=== PATIENT | female | born 1940 ===

== ENCOUNTER 2018-12-29 16:57 | Inpatient (IN) | payer MEDICARE, SELFPAY ==
[~2018-12-29] VITALS: Ht 157.5 cm; Wt 91.0 kg
--- NOTE | 2018-12-29 17:00 | NUR ---
TASK RN: [facility] FROM [place] W/ CO R L ARM PAIN/SWELLING X THREE DAYS OVER AV [facility] SITE. FISTULA LAST USED FOR DIALYSIS ON SUNDAY. +THRILL W/ 2S CAP REFILL DISTALLY. DENIES TRAUMA OR SITE INJURY/FEVER/N/V BC X2 AND ZOSYN/VANCO GIVEN MARKETING DEVELOPMENT MANAGER. PT UNABLE TO RECALL HOME MEDICATIONS, UNABLE TO DO MED REC AT THIS TIME. PRIMARY RN, ANNIE GOLDSTEIN
[2018-12-29] MEDS ORDERED: DOCUSATE 100 MG CAPSULE PO PRN (18:00)
[2018-12-29] MEDS ORDERED: LABETALOL 5MG/ML, 20ML IVPush PRN (18:00)
[2018-12-29] MEDS ORDERED: POLYETHYLENE GLYCOL 17 GM PACKET PO PRN (18:00)
[2018-12-29] MEDS ORDERED: GABAPENTIN 300 MG CAPSULE PO PRN (18:00)
[2018-12-29] MEDS ORDERED: hydrALAzine 20 MG/ML, 1ML IVPush PRN (18:00)
[2018-12-29] MEDS ORDERED: BISACODYL 10 MG SUPP PR PRN (18:00)
[2018-12-29] MEDS ORDERED: VANCOMYCIN PER PHARMACY MC PRN ×2 (18:00→20:00)
[2018-12-29] MEDS ORDERED: PHARMACY MAY ADJ FOR RENAL FX MC PRN (18:00)
--- NOTE | 2018-12-29 18:11 | NUR ---
TASK RN: REPORT TO ASHLYN PRESCOTT
--- NOTE | 2018-12-29 18:14 | NUR ---
TASK RN: REPORT CALLED TO ASHLYN PRESCOTT
[2018-12-29] MEDS ORDERED: GLUCAGON 1 MG IM PRN (18:30)
[2018-12-29] MEDS ORDERED: DEXTROSE 50%, 50ML SYRINGE IVPush PRN (18:30)
[2018-12-29] MEDS ORDERED: DEXTROSE 4 GM TAB.CHEW PO PRN (18:30)
[2018-12-29 18:33] LABS: BASOPHILS # (AUTO) 0.05 x10^3/uL (0-0.1); BASOPHILS % (AUTO) 1 % (0-1); EOSINOPHILS # (AUTO) 0.01 x10^3/uL (0-0.4); EOSINOPHILS % (AUTO) 0 % (1-7); LYMPHOCYTES # (AUTO) 1.01 x10^3/uL (1-3.4); LYMPHOCYTES % (AUTO) 15 % (22-44); MD NO; MEAN CORPUSCULAR HEMOGLOBIN 27.7 pg (27.0-34.8); MEAN CORPUSCULAR VOLUME 86.5 fL (80-100); MEAN PLATELET VOLUME 8.2 fL (7.4-10.4); MONOCYTES # (AUTO) 0.33 x10^3/uL (0.2-0.8); MONOCYTES % (AUTO) 5 % (2-9); NEUTROPHILS # (AUTO) 5.49 x10^3/uL (1.8-6.8); NEUTROPHILS % (AUTO) 80 % (42-75); PLATELET COUNT 340 x10^3/uL (130-400); RED CELL DISTRIBUTION WIDTH 17.3 % (9.6-15.2)
[2018-12-29] MEDS: HEPARIN 5,000 UNITS/ML, 1ML SQ SCH (18:48)
[2018-12-29 19:07] LABS: HEMOGLOBIN A1C 5.2 % (4.2-6.3)
[2018-12-29 19:18] VITALS: BP 153/80
[2018-12-29] MEDS ORDERED: PHARMACOKINETIC MONITORING MC PRN ×2 (19:30→20:00)
[2018-12-29] MEDS ORDERED: VANCOMYCIN 1,500 MG in SODIUM CHLORIDE 0.9% 250 ML IV ONE (19:30)
[2018-12-29] MEDS ORDERED: PHARMACOKINETIC CONSULTATION MC ONE ×2 (19:30→20:00)
[2018-12-29 19:34] LABS: ALBUMIN 2.9 g/dL (3.4-5.0); ANION GAP 11 mmol/L (5-15); CALCIUM 8.4 mg/dL (8.5-10.1); CHLORIDE 99 mmol/L (98-107); CREATININE 6.56 mg/dL (0.55-1.02)
[2018-12-29] MEDS: INSULIN LISPRO 100 UNITS/ML, PEN SQ-INSULIN SCH (20:09)
[2018-12-29] MEDS: PIPERACILLIN/TAZO/PMX 2.25GM 50 ML IV SCH (20:17)
[2018-12-29] MEDS: SODIUM CHLORIDE FLUSH 10ML SYR IVF SCH (20:23)
[2018-12-29] MEDS ORDERED: PIPERACILLIN/TAZO/PMX 2.25GM 50 ML IV SCH (21:00)
[2018-12-29] MEDS ORDERED: PIPERACILLIN/TAZO 2.25 GM in SODIUM CHLORIDE 0.9% 50 ML IV SCH (21:00)
[2018-12-30] MEDS: HEPARIN 5,000 UNITS/ML, 1ML SQ SCH ×3 (01:39→18:00)
[2018-12-30 03:39] VITALS: BP 134/75
[2018-12-30 05:43] LABS: ALBUMIN 2.5 g/dL (3.4-5.0); ANION GAP 11 mmol/L (5-15); CALCIUM 8.1 mg/dL (8.5-10.1); CHLORIDE 100 mmol/L (98-107); CREATININE 7.11 mg/dL (0.55-1.02)
[2018-12-30 05:47] LABS: BASOPHILS # (AUTO) 0.03 x10^3/uL (0-0.1); BASOPHILS % (AUTO) 1 % (0-1); EOSINOPHILS % (AUTO) 0 % (1-7); LYMPHOCYTES # (AUTO) 0.73 x10^3/uL (1-3.4); LYMPHOCYTES % (AUTO) 14 % (22-44); MD NO; MEAN CORPUSCULAR HEMOGLOBIN 28.5 pg (27.0-34.8); MEAN CORPUSCULAR HGB CONC 33.3 g/dL (32.4-35.8); MEAN CORPUSCULAR VOLUME 85.7 fL (80-100); MEAN PLATELET VOLUME 7.7 fL (7.4-10.4); MONOCYTES # (AUTO) 0.29 x10^3/uL (0.2-0.8); MONOCYTES % (AUTO) 6 % (2-9); NEUTROPHILS # (AUTO) 4.24 x10^3/uL (1.8-6.8); NEUTROPHILS % (AUTO) 80 % (42-75); PLATELET COUNT 261 x10^3/uL (130-400); RED BLOOD COUNT 3.44 x10^6/uL (3.82-5.3); RED CELL DISTRIBUTION WIDTH 17.6 % (9.6-15.2)
[2018-12-30 05:48] LABS: ALANINE AMINOTRANSFERASE 11 U/L (12-78); ALKALINE PHOSPHATASE 95 U/L (45-117); BILIRUBIN,TOTAL 0.3 mg/dL (0.2-1.0); TOTAL PROTEIN 6.6 g/dL (6.4-8.2); VANCOMYCIN,RANDOM 22.4 mcg/mL
[2018-12-30 06:37] LABS: INTERNATIONAL NORMALIZED RATIO 1.04 (0.93-1.1)
[2018-12-30] MEDS: INSULIN LISPRO 100 UNITS/ML, PEN SQ-INSULIN SCH ×4 (07:00→21:00)
[2018-12-30 07:19] VITALS: BP 147/67
[2018-12-30] MEDS: PIPERACILLIN/TAZO/PMX 2.25GM 50 ML IV SCH ×2 (10:10→22:16)
[2018-12-30] MEDS: SODIUM CHLORIDE FLUSH 10ML SYR IVF SCH ×2 (10:34→21:00)
[2018-12-30] MEDS ORDERED: DARBEPOETIN 100 MCG/ML SQ SCH (12:00)
[2018-12-30] MEDS: ACETAMINOPHEN 325 MG TABLET PO PRN (12:10)
[2018-12-30 12:42] VITALS: BP 153/70
[2018-12-30 19:56] VITALS: BP 128/63
[2018-12-31 00:45] VITALS: BP 131/72
[2018-12-31] MEDS: HEPARIN 5,000 UNITS/ML, 1ML SQ SCH ×3 (03:17→20:26)
[2018-12-31] MEDS: ACETAMINOPHEN 325 MG TABLET PO PRN ×2 (04:25→23:44)
[2018-12-31 04:50] LABS: BASOPHILS # (AUTO) 0.03 x10^3/uL (0-0.1); BASOPHILS % (AUTO) 1 % (0-1); EOSINOPHILS # (AUTO) 0.01 x10^3/uL (0-0.4); EOSINOPHILS % (AUTO) 0 % (1-7); LYMPHOCYTES # (AUTO) 0.66 x10^3/uL (1-3.4); LYMPHOCYTES % (AUTO) 12 % (22-44); MD NO; MEAN CORPUSCULAR HEMOGLOBIN 28.6 pg (27.0-34.8); MEAN CORPUSCULAR VOLUME 86.5 fL (80-100); MEAN PLATELET VOLUME 7.8 fL (7.4-10.4); MONOCYTES # (AUTO) 0.31 x10^3/uL (0.2-0.8); MONOCYTES % (AUTO) 6 % (2-9); NEUTROPHILS # (AUTO) 4.32 x10^3/uL (1.8-6.8); NEUTROPHILS % (AUTO) 81 % (42-75); PLATELET COUNT 276 x10^3/uL (130-400); RED BLOOD COUNT 3.73 x10^6/uL (3.82-5.3); RED CELL DISTRIBUTION WIDTH 17.4 % (9.6-15.2)
[2018-12-31 05:04] LABS: ALBUMIN 2.8 g/dL (3.4-5.0); ANION GAP 7 mmol/L (5-15); CALCIUM 8.6 mg/dL (8.5-10.1); CHLORIDE 95 mmol/L (98-107)
[2018-12-31 05:10] LABS: % IRON SATURATION 25 % (20-55); ALANINE AMINOTRANSFERASE 11 U/L (12-78); ALKALINE PHOSPHATASE 100 U/L (45-117); BILIRUBIN,TOTAL 0.5 mg/dL (0.2-1.0); IRON LEVEL 28 mcg/dL (50-170); TOTAL IRON BINDING CAPACITY 114 mcg/dL (250-450); TOTAL PROTEIN 7.2 g/dL (6.4-8.2)
[2018-12-31] MEDS ORDERED: MAGNESIUM SULFATE 3 GM in SODIUM CHLORIDE 0.9% 100 ML IV ONE (07:00)
[2018-12-31] MEDS: INSULIN LISPRO 100 UNITS/ML, PEN SQ-INSULIN SCH ×4 (07:00→19:28)
[2018-12-31 07:37] VITALS: BP 136/70
[2018-12-31] MEDS: SODIUM CHLORIDE FLUSH 10ML SYR IVF SCH ×2 (08:31→20:26)
[2018-12-31] MEDS: PIPERACILLIN/TAZO/PMX 2.25GM 50 ML IV SCH ×3 (08:31→20:26)
[2018-12-31 13:14] VITALS: BP 151/73
[2018-12-31 18:47] VITALS: BP 113/68
[2019-01-01 03:08] VITALS: BP 144/75
[2019-01-01] MEDS: HEPARIN 5,000 UNITS/ML, 1ML SQ SCH ×3 (04:51→21:41)
[2019-01-01 05:21] LABS: BASOPHILS # (AUTO) 0.03 x10^3/uL (0-0.1); BASOPHILS % (AUTO) 1 % (0-1); EOSINOPHILS # (AUTO) 0.01 x10^3/uL (0-0.4); EOSINOPHILS % (AUTO) 0 % (1-7); LYMPHOCYTES # (AUTO) 0.89 x10^3/uL (1-3.4); LYMPHOCYTES % (AUTO) 20 % (22-44); MD NO; MEAN CORPUSCULAR HEMOGLOBIN 28.4 pg (27.0-34.8); MEAN CORPUSCULAR HGB CONC 32.9 g/dL (32.4-35.8); MEAN CORPUSCULAR VOLUME 86.1 fL (80-100); MEAN PLATELET VOLUME 7.8 fL (7.4-10.4); MONOCYTES % (AUTO) 7 % (2-9); NEUTROPHILS # (AUTO) 3.16 x10^3/uL (1.8-6.8); NEUTROPHILS % (AUTO) 72 % (42-75); PLATELET COUNT 266 x10^3/uL (130-400); RED BLOOD COUNT 3.47 x10^6/uL (3.82-5.3); RED CELL DISTRIBUTION WIDTH 17.4 % (9.6-15.2)
[2019-01-01 05:32] LABS: ALBUMIN 2.7 g/dL (3.4-5.0); ANION GAP 10 mmol/L (5-15); CALCIUM 8.8 mg/dL (8.5-10.1); CHLORIDE 98 mmol/L (98-107)
[2019-01-01] MEDS: INSULIN LISPRO 100 UNITS/ML, PEN SQ-INSULIN SCH ×4 (07:00→21:41)
[2019-01-01 07:52] VITALS: BP 158/75
[2019-01-01] MEDS: SODIUM CHLORIDE FLUSH 10ML SYR IVF SCH ×2 (11:47→21:41)
[2019-01-01] MEDS: PIPERACILLIN/TAZO/PMX 2.25GM 50 ML IV SCH ×2 (11:47→21:41)
[2019-01-01 12:36] VITALS: BP 103/61
[2019-01-01] MEDS ORDERED: LIDOCAINE 1%, 20ML ONE (13:43)
[2019-01-01] MEDS ORDERED: MIDAZOLAM 1 MG/ML, 5ML ONE ×2 (14:13→14:14)
[2019-01-01] MEDS ORDERED: FENTANYL PF 100 MCG/2ML ONE (14:13)
[2019-01-01] MEDS ORDERED: FLUMAZENIL 0.1 MG/1 ML, 5ML ONE (14:14)
[2019-01-01] MEDS ORDERED: NALOXONE 1 MG/ML, 2ML ONE (14:14)
[2019-01-01] MEDS: ACETAMINOPHEN 325 MG TABLET PO PRN (21:42)
[2019-01-01 22:10] VITALS: BP 102/65
[2019-01-02 01:14] VITALS: BP 105/65
[2019-01-02] MEDS: HEPARIN 5,000 UNITS/ML, 1ML SQ SCH ×3 (04:10→21:08)
[2019-01-02] MEDS: INSULIN LISPRO 100 UNITS/ML, PEN SQ-INSULIN SCH ×4 (07:00→21:28)
[2019-01-02 07:47] VITALS: BP 134/73
[2019-01-02 08:37] LABS: BASOPHILS # (AUTO) 0.06 x10^3/uL (0-0.1); BASOPHILS % (AUTO) 1 % (0-1); EOSINOPHILS # (AUTO) 0.01 x10^3/uL (0-0.4); EOSINOPHILS % (AUTO) 0 % (1-7); LYMPHOCYTES # (AUTO) 0.59 x10^3/uL (1-3.4); LYMPHOCYTES % (AUTO) 12 % (22-44); MD NO; MEAN CORPUSCULAR HEMOGLOBIN 27.2 pg (27.0-34.8); MEAN CORPUSCULAR HGB CONC 31.4 g/dL (32.4-35.8); MEAN CORPUSCULAR VOLUME 86.7 fL (80-100); MEAN PLATELET VOLUME 7.8 fL (7.4-10.4); MONOCYTES # (AUTO) 0.36 x10^3/uL (0.2-0.8); MONOCYTES % (AUTO) 7 % (2-9); NEUTROPHILS # (AUTO) 4.17 x10^3/uL (1.8-6.8); NEUTROPHILS % (AUTO) 80 % (42-75); PLATELET COUNT 239 x10^3/uL (130-400); RED BLOOD COUNT 3.99 x10^6/uL (3.82-5.3); RED CELL DISTRIBUTION WIDTH 17.4 % (9.6-15.2)
[2019-01-02 08:44] LABS: ANION GAP 9 mmol/L (5-15); CALCIUM 8.8 mg/dL (8.5-10.1); CHLORIDE 96 mmol/L (98-107); CREATININE 5.47 mg/dL (0.55-1.02)
[2019-01-02] MEDS: PIPERACILLIN/TAZO/PMX 2.25GM 50 ML IV SCH ×2 (09:53→21:27)
[2019-01-02] MEDS: AMLODIPINE 5 MG TABLET PO SCH (09:53)
[2019-01-02] MEDS: CHOLECALCIFEROL 1,000 UNIT TABLET PO SCH (09:53)
[2019-01-02] MEDS: MULTIVITAMIN 1 TABLET PO SCH (09:53)
[2019-01-02] MEDS: SODIUM CHLORIDE FLUSH 10ML SYR IVF SCH ×2 (09:54→21:27)
[2019-01-02 12:36] VITALS: BP 117/68
[2019-01-02] MEDS: CARVEDILOL 25 MG TABLET PO SCH (16:58)
[2019-01-02 19:53] VITALS: BP 136/76
[2019-01-02] MEDS: ACETAMINOPHEN 325 MG TABLET PO PRN (21:47)
[2019-01-03 01:34] VITALS: BP 153/79
[2019-01-03 05:06] VITALS: BP 136/67
[2019-01-03] MEDS: HEPARIN 5,000 UNITS/ML, 1ML SQ SCH ×2 (05:14→17:11)
[2019-01-03] MEDS: CARVEDILOL 25 MG TABLET PO SCH ×2 (05:48→18:42)
[2019-01-03 06:33] LABS: BASOPHILS # (AUTO) 0.05 x10^3/uL (0-0.1); BASOPHILS % (AUTO) 1 % (0-1); EOSINOPHILS # (AUTO) 0.02 x10^3/uL (0-0.4); EOSINOPHILS % (AUTO) 1 % (1-7); LYMPHOCYTES # (AUTO) 0.87 x10^3/uL (1-3.4); LYMPHOCYTES % (AUTO) 18 % (22-44); MD NO; MEAN CORPUSCULAR HEMOGLOBIN 28.6 pg (27.0-34.8); MEAN CORPUSCULAR HGB CONC 32.7 g/dL (32.4-35.8); MEAN CORPUSCULAR VOLUME 87.3 fL (80-100); MEAN PLATELET VOLUME 7.8 fL (7.4-10.4); MONOCYTES # (AUTO) 0.29 x10^3/uL (0.2-0.8); MONOCYTES % (AUTO) 6 % (2-9); NEUTROPHILS # (AUTO) 3.52 x10^3/uL (1.8-6.8); NEUTROPHILS % (AUTO) 74 % (42-75); PLATELET COUNT 238 x10^3/uL (130-400); RED BLOOD COUNT 3.56 x10^6/uL (3.82-5.3); RED CELL DISTRIBUTION WIDTH 17.8 % (9.6-15.2)
[2019-01-03 06:36] LABS: ALBUMIN 2.8 g/dL (3.4-5.0); ANION GAP 8 mmol/L (5-15); CALCIUM 8.7 mg/dL (8.5-10.1); CHLORIDE 98 mmol/L (98-107); CREATININE 7.01 mg/dL (0.55-1.02)
[2019-01-03] MEDS: AMLODIPINE 5 MG TABLET PO SCH (07:36)
[2019-01-03] MEDS: INSULIN LISPRO 100 UNITS/ML, PEN SQ-INSULIN SCH ×4 (07:47→21:15)
[2019-01-03 08:05] VITALS: BP 139/83
[2019-01-03] MEDS: SODIUM CHLORIDE FLUSH 10ML SYR IVF SCH ×2 (09:00→21:03)
[2019-01-03] MEDS: CHOLECALCIFEROL 1,000 UNIT TABLET PO SCH (09:56)
[2019-01-03] MEDS: MULTIVITAMIN 1 TABLET PO SCH (09:58)
[2019-01-03] MEDS: ACETAMINOPHEN 325 MG TABLET PO PRN (10:03)
[2019-01-03] MEDS ORDERED: CARV25TA12 PO (12:23)
[2019-01-03] MEDS ORDERED: CHOL10003 PO (12:23)
[2019-01-03] MEDS ORDERED: AMLO-150 PO (12:24)
[2019-01-03] MEDS ORDERED: CATHFLO-ALTEPLASE 2 MG/2 ML CATHFLUSH STA (12:27)
[2019-01-03] MEDS: PIPERACILLIN/TAZO/PMX 2.25GM 50 ML IV SCH (17:10)
[2019-01-03] MEDS ORDERED: VANCOMYCIN PMX 1GM/200ML 200 ML IV ONE (18:00)
[2019-01-03 19:21] VITALS: BP 100/50
[2019-01-04] MEDS: HEPARIN 5,000 UNITS/ML, 1ML SQ SCH ×2 (01:01→08:37)
[2019-01-04 01:20] VITALS: BP 105/64
[2019-01-04] MEDS: CARVEDILOL 25 MG TABLET PO SCH (05:37)
[2019-01-04] MEDS: PIPERACILLIN/TAZO/PMX 2.25GM 50 ML IV SCH (05:37)
[2019-01-04 07:49] VITALS: BP 77/43
[2019-01-04 08:37] VITALS: BP 123/66
[2019-01-04] MEDS: AMLODIPINE 5 MG TABLET PO SCH (08:37)
[2019-01-04] MEDS: MULTIVITAMIN 1 TABLET PO SCH (08:37)
[2019-01-04] MEDS: CHOLECALCIFEROL 1,000 UNIT TABLET PO SCH (08:37)
[2019-01-04] MEDS: SODIUM CHLORIDE FLUSH 10ML SYR IVF SCH (08:38)
[2019-01-04] MEDS: INSULIN LISPRO 100 UNITS/ML, PEN SQ-INSULIN SCH (08:38)
== END 2019-01-04 11:18 | disposition home or self-care (01) | DRG 314 ==
LOC: ED 17:22 → EDIP 17:48 → 4EST 18:30
PROVIDERS: ADMIT Hospitalist; ATTEND Hospitalist
PROC: 5A1D70Z Performance of Urinary Filtration, Intermittent, Less than 6 Hours Per Day (ICD-10-PCS; 2018-12-30)
PROC: 02HV33Z Insertion of Infusion Device into Superior Vena Cava, Percutaneous Approach (ICD-10-PCS; 2018-12-30)
PROC: B548ZZA Ultrasonography of Superior Vena Cava, Guidance (ICD-10-PCS; 2018-12-30)
PROC: B5181ZA Fluoroscopy of Superior Vena Cava using Low Osmolar Contrast, Guidance (ICD-10-PCS; 2018-12-30)
PROC: 5A1D70Z Performance of Urinary Filtration, Intermittent, Less than 6 Hours Per Day (ICD-10-PCS; 2019-01-01)
PROC: 0JH63WZ Insertion of Totally Implantable Vascular Access Device into Chest Subcutaneous Tissue and Fascia, Percutaneous Approach (ICD-10-PCS; 2019-01-01)
PROC: 02HV33Z Insertion of Infusion Device into Superior Vena Cava, Percutaneous Approach (ICD-10-PCS; 2019-01-01)
PROC: B5181ZA Fluoroscopy of Superior Vena Cava using Low Osmolar Contrast, Guidance (ICD-10-PCS; 2019-01-01)
PROC: B548ZZA Ultrasonography of Superior Vena Cava, Guidance (ICD-10-PCS; 2019-01-01)
PROC: 02PYX3Z Removal of Infusion Device from Great Vessel, External Approach (ICD-10-PCS; 2019-01-01)
PROC: 5A1D70Z Performance of Urinary Filtration, Intermittent, Less than 6 Hours Per Day (ICD-10-PCS; principal; 2019-01-03)
DX: T82.7XXA Infection and inflammatory reaction due to other cardiac and vascular devices, implants and grafts, initial encounter (principal); N18.6 End stage renal disease; I13.2 Hypertensive heart and chronic kidney disease with heart failure and with stage 5 chronic kidney disease, or end stage renal disease; I50.32 Chronic diastolic (congestive) heart failure; I82.619 Acute embolism and thrombosis of superficial veins of unspecified upper extremity; D63.1 Anemia in chronic kidney disease; E11.22 Type 2 diabetes mellitus with diabetic chronic kidney disease; E11.65 Type 2 diabetes mellitus with hyperglycemia; E78.5 Hyperlipidemia, unspecified; N25.0 Renal osteodystrophy; Y83.2 Surgical operation with anastomosis, bypass or graft as the cause of abnormal reaction of the patient, or of later complication, without mention of misadventure at the time of the procedure; Z87.891 Personal history of nicotine dependence; Z99.2 Dependence on renal dialysis; Y92.89 Other specified places as the place of occurrence of the external cause
CPT/HCPCS: 36415; 36556; 36558; 76937; 77001; 80048; 80053; 80069; 80202; 82040; 82306; 82728; 82962; 83036; 83540; 83550; 83605; 83735; 83970; 84100; 84443; 84550; 85025; 85610; 85730; 86705; 86706; 87040; 87340; 93990; 99156; 99157; 99285; G0378; J0881; J1644; J2250; J2543; J2997; J3010; J3370; J3475; J3490; C1750; C1751; J1642; J1815; J2310

== ENCOUNTER 2019-04-07 08:22 | Outpatient (CLI) | payer MEDICARE, OTHER ==
[~2019-04-07] VITALS: Ht 154.9 cm; Wt 76.2 kg
[~2019-04-07 08:22] MED LIST: AMLO-150 PO; BUPIVACAINE/PF 0.5% ONE; CARV25TA12 PO; CHOL10003 PO; HEPARIN 1,000 UNITS/ML, 10ML ONE; THROMBIN 5,000 UNIT VIAL TP ONE
[2019-04-07] MEDS ORDERED: MULT1TAB57 PO (08:44)
[2019-04-07] MEDS ORDERED: [UNRECOGNIZED DRUG - CODE] EACHEYE (08:44)
[2019-04-07] MEDS ORDERED: SODIUM CHLORIDE 0.9% 1,000 ML IV SCH (08:46)
[2019-04-07] MEDS ORDERED: CARV-39 PO (08:59)
[2019-04-07] MEDS ORDERED: AMLO-150 PO (08:59)
[2019-04-07] MEDS ORDERED: GABAPENTIN 300 MG CAPSULE PO ONE (09:00)
[2019-04-07] MEDS ORDERED: ACETAMINOPHEN 500 MG TABLET PO ONE (09:00)
[2019-04-07] MEDS ORDERED: LIDOCAINE-MPF 1%, 2ML INFIL ONE (09:00)
[2019-04-07 09:17] VITALS: BP 152/84
== END 2019-04-07 10:40 | disposition home or self-care (01) ==
LOC: STAR 08:22 → OUT 08:22 → STAR 10:40 → EDSTATUS 12:30
PROVIDERS: ATTEND Surgery Vascular Surgery
DX: Z01.818 Encounter for other preprocedural examination (principal); N18.6 End stage renal disease
CPT/HCPCS: 36415; 80047; 93005; J1644

== ENCOUNTER 2019-05-19 08:48 | Day surgery (SDC) | payer MEDICARE, OTHER ==
[~2019-05-19] VITALS: Ht 156.2 cm; Wt 76.3 kg
[~2019-05-19 08:48] MED LIST changes: -BUPIVACAINE/PF 0.5% ONE; +CARV-39 PO; +MULT1TAB57 PO; +PROTAMINE SULFATE 10 MG/ML, 5ML ONE; +THROMBIN 20,000 UNIT VIAL TP ONE; -THROMBIN 5,000 UNIT VIAL TP ONE; +[UNRECOGNIZED DRUG - CODE] EACHEYE
[2019-05-19 09:56] VITALS: BP 128/74
[2019-05-19] MEDS ORDERED: ACET325T14 PO (10:13)
[2019-05-19] MEDS ORDERED: CHOL200024 PO (10:15)
[2019-05-19] MEDS ORDERED: FENTANYL PF 100 MCG/2ML ONE (10:34)
[2019-05-19] MEDS ORDERED: MIDAZOLAM 1 MG/ML, 2ML ONE (10:34)
[2019-05-19] MEDS: SODIUM CHLORIDE 0.9% 1,000 ML IV SCH ×2 (10:35→10:36)
[2019-05-19] MEDS ORDERED: LIDOCAINE 2% 100MG/5ML SYRINGE ONE (11:11)
[2019-05-19] MEDS ORDERED: MIDAZOLAM 1 MG/ML, 5ML ONE (11:11)
[2019-05-19] MEDS ORDERED: EPHEDRINE 50 MG/ML, 1ML ONE (11:11)
[2019-05-19] MEDS ORDERED: ACETAMINOPHEN 325 MG TABLET PO PRN (11:30)
[2019-05-19] MEDS ORDERED: PROMETHAZINE 25 MG SUPP PR PRN (11:30)
[2019-05-19] MEDS ORDERED: ONDANSETRON 2MG/ML, 2ML IV PRN (11:30)
[2019-05-19] MEDS ORDERED: FENTANYL PF 100 MCG/2ML IV PRN (11:30)
[2019-05-19] MEDS ORDERED: PROMETHAZINE 25 MG/ML, 1ML IV PRN (11:30)
[2019-05-19] MEDS ORDERED: ONDANSETRON ODT 8 MG PO PRN (11:30)
[2019-05-19] MEDS ORDERED: OXYcodone 5 MG/5 ML ORAL.SOL UDC PO PRN (11:30)
[2019-05-19] MEDS ORDERED: OXYcodone 5 MG/5 ML ORAL.SOL UDC ONE (12:13)
[2019-05-19] MEDS ORDERED: DEXAMETHASONE 4 MG/ML, 1ML ONE (12:35)
[2019-05-19] MEDS ORDERED: CEFAZOLIN 1,000 MG ONE (12:35)
[2019-05-19] MEDS ORDERED: PROPOFOL 10 MG/ML, 20ML ONE (12:35)
[2019-05-19] MEDS ORDERED: ONDANSETRON 2MG/ML, 2ML ONE (12:35)
== END 2019-05-19 14:00 | disposition home or self-care (01) ==
LOC: OR 08:48
PROVIDERS: ATTEND Surgery Vascular Surgery
DX: T82.868A Thrombosis due to vascular prosthetic devices, implants and grafts, initial encounter (principal); I12.0 Hypertensive chronic kidney disease with stage 5 chronic kidney disease or end stage renal disease; E11.22 Type 2 diabetes mellitus with diabetic chronic kidney disease; N18.6 End stage renal disease; Z79.84 Long term (current) use of oral hypoglycemic drugs; Y83.8 Other surgical procedures as the cause of abnormal reaction of the patient, or of later complication, without mention of misadventure at the time of the procedure; Y92.89 Other specified places as the place of occurrence of the external cause
CPT/HCPCS: 36415; 36832; 82962; J0690; J1100; J1644; J2250; J2405; J2704; J3010; J7030; J2720

== ENCOUNTER 2019-06-23 09:20 | Day surgery (SDC) | payer MEDICARE, OTHER ==
[~2019-06-23] VITALS: Ht 162.6 cm; Wt 77.2 kg
[2019-06-23 19:23] VITALS: BP 121/72
== END 2019-06-23 20:50 | disposition home or self-care (01) ==
LOC: OUT 09:20 → 4NOR 19:17 → OUT 20:50
PROVIDERS: ATTEND Surgery Vascular Surgery
DX: T82.868A Thrombosis due to vascular prosthetic devices, implants and grafts, initial encounter (principal); E11.22 Type 2 diabetes mellitus with diabetic chronic kidney disease; I13.2 Hypertensive heart and chronic kidney disease with heart failure and with stage 5 chronic kidney disease, or end stage renal disease; I50.9 Heart failure, unspecified; N18.6 End stage renal disease; Y83.8 Other surgical procedures as the cause of abnormal reaction of the patient, or of later complication, without mention of misadventure at the time of the procedure
CPT/HCPCS: 36415; 36832; 80047; J0690; J1100; J1644; J2405; J2704; J2720; J3010; G0378